=== PATIENT | male | born 1990 | race Caucasian/White ===

== ENCOUNTER 2020-05-27 07:02 | Emergency (ER) | payer OTHER ==
[2020-05-27 12:19] LABS: HEMOGLOBIN 14.8 gm/dl (14.0-17.5); RED BLOOD COUNT 4.94 M/UL (4.20-5.50); WHITE BLOOD COUNT 8.3 K/UL (4.5-11.0)
[2020-05-27 12:44] LABS: BUN/CREATININE RATIO 16 (0-10)
[2020-05-27] MEDS ORDERED: CYCLOBENZAPRINE5 MG PO (14:41)
== END 2020-05-27 14:48 | disposition home or self-care (01) ==
LOC: ER1 07:02
PROVIDERS: Student in an Organized Health Care Education/Training Program
DX: S16.1XXA Strain of muscle, fascia and tendon at neck level, initial encounter (principal); X50.0XXA Overexertion from strenuous movement or load, initial encounter; Y92.69 Other specified industrial and construction area as the place of occurrence of the external cause; Y99.0 Civilian activity done for income or pay
CPT/HCPCS: 36415; 70491; 80053; 85025; 99284; Q9963